=== PATIENT | male | born 1945 | race Caucasian/White ===

== ENCOUNTER 2022-04-26 11:36 | Outpatient (CLI) | payer BC, SELFPAY ==
[2022-04-26 13:10] LABS: Albumin* 4.6 g/dL (3.3-5.0)
[2022-04-26 13:11] LABS: Chloride* 91 mmol/L (96-114); Potassium* 4.5 mmol/L (3.6-5.1); Sodium* 132 mmol/L (135-149)
[2022-04-26 13:13] LABS: Aspartate Amino Transferase* 70 U/L (12-35); Basophils Absolute Auto 0.06 K/uL (0.00-0.30); Basophils Percent Auto 0.9 % (0.0-3.0); Bilirubin Total* 1.2 mg/dL (0.1-1.5); Carbon Dioxide* 27 mmol/L (20-32); Creatinine* 0.8 mg/dL (0.5-1.5); Eosinophils Absolute Auto 0.04 K/uL (0.00-0.50); Eosinophils Percent Auto 0.6 % (0.0-7.0); Estimated Glomerular Filt Rate 92 ml/min; Hematocrit 46.8 % (37.0-53.0); Hemoglobin* 15.5 gm/dL (13.5-17.5); Immature Granulocytes Abs Auto 0.01 K/uL (0.00-0.30); Lymphocytes Absolute Auto 1.52 K/uL (0.90-2.90); Mean Corpuscular HGB Conc 33 gm/dL (32-36); Mean Corpuscular Hemoglobin 31 pg (26-34); Mean Corpuscular Volume 94 fL (80-100); Neutrophils Absolute Auto 4.44 K/uL (1.7-7.0); Neutrophils Percent Auto 67.3 % (42.0-72.0); Platelet Count* 211 K/uL (140-440); RDW Coefficient of Variation % 15.5 % (11.5-15.5); Red Blood Count 4.97 m/uL (4.30-5.90); Slide Review Reflex No; Total Protein* 7.5 g/dL (6.0-8.3)
[2022-04-26 13:14] LABS: Alanine Aminotransferase* 42 U/L (4-50); Alkaline Phosphatase* 69 U/L (40-150); Blood Urea Nitrogen* 9 mg/dL (7-30); Calcium* 9.7 mg/dL (8.4-10.6); Glucose* 140 mg/dL (60-115)
[2022-04-26 13:45] LABS: PSA Diagnostic* 6.67 ng/mL (0.10-4.00)
== END 2022-04-26 11:37 | disposition home or self-care (01) ==
PROVIDERS: PCP Family Medicine; Visit Provider Family Medicine
DX: F10.10 Alcohol abuse, uncomplicated (principal); R97.20 Elevated prostate specific antigen [PSA]; E78.5 Hyperlipidemia, unspecified; I10 Essential (primary) hypertension; Z12.5 Encounter for screening for malignant neoplasm of prostate
CPT/HCPCS: 80053; 84153; 85025

== ENCOUNTER 2022-06-06 09:16 | Outpatient (CLI) | payer BC, SELFPAY ==
--- NOTE | 2022-06-06 10:00 | CRLHL7_ITS ---
For Patients: As a result of the Century Cures Act, medical imaging exams and procedure reports are released immediately into your electronic medical record. You may view this report before your referring provider. If you have questions, please contact your health care provider. INDICATION: FALL. PAIN COMPARISON: none TECHNIQUE: A CT volumetric acquisition was performed of the brain without IV contrast. Please note that all CT scans at this facility use dose modulation, iterative reconstruction, and/or weight-based dosing when appropriate to reduce radiation dose to as low as reasonably achievable. FINDINGS: Mild bilateral sinus disease is present. Generalized atrophy noted. Chronic white matter changes. No hemorrhage or hydrocephalus. No extra-axial fluid collection or mass. No midline shift. IMPRESSION: Chronic senescent changes. No intracranial hemorrhage. Please note that all CT scans at this facility use dose modulation, iterative reconstruction, and/or weight-based dosing when appropriate to reduce radiation dose to as low as reasonably achievable. Dictated by Kurtis Kim MD @ 06/06/2022 9:58:08 AM (Electronically Signed)
--- NOTE | 2022-06-06 10:30 | CRLHL7_ITS ---
For Patients: As a result of the Century Cures Act, medical imaging exams and procedure reports are released immediately into your electronic medical record. You may view this report before your referring provider. If you have questions, please contact your health care provider. Indication: Fall, pain Technique: Routine noncontrast CT lumbar spine Please note that all CT scans at this facility use dose modulation, iterative reconstruction, and/or weight-based dosing when appropriate to reduce radiation dose to as low as reasonably achievable. Comparison: None Findings: There is subtle mild compression of the L1 superior endplate. Remaining vertebral bodies are intact. There is no pars defect. Multilevel discogenic spurring throughout the lumbar spine. Degenerative facet arthropathy lower lumbar spine with grade 1 degenerative spondylolisthesis of L4 on L5 and slight degenerative retrolisthesis of L5 on S1. Vacuum disc phenomenon at L5-S1. Vascular calcifications. Diffuse disc bulge L4-5 and L3-4. No paraspinal soft tissue mass. No adenopathy. Moderately severe canal stenosis L4-5. Impression: Subtle mild compression fracture deformity superior endplate L1. Severe facet degeneration at L4-5 with grade 1 degenerative spondylolisthesis of L4 on L5. Moderately severe canal stenosis is present at this level due to the facet degeneration and a diffuse disc bulge. Please note that all CT scans at this facility use dose modulation, iterative reconstruction, and/or weight-based dosing when appropriate to reduce radiation dose to as low as reasonably achievable. Dictated by Kurtis Kim MD @ 06/06/2022 10:06:15 AM (Electronically Signed)
== END 2022-06-06 09:17 | disposition home or self-care (01) ==
LOC: CT 09:20
PROVIDERS: PCP Family Medicine; Visit Provider Family Medicine
DX: R29.6 Repeated falls (principal); S32.019A Unspecified fracture of first lumbar vertebra, initial encounter for closed fracture; M43.16 Spondylolisthesis, lumbar region; M48.061 Spinal stenosis, lumbar region without neurogenic claudication
CPT/HCPCS: 70450; 72131

== ENCOUNTER 2022-11-07 09:51 | Outpatient (CLI) | payer BC, SELFPAY | END 2022-11-07 09:52 | disposition home or self-care (01) | PROVIDERS: PCP Family Medicine; Visit Provider Family Medicine | DX: I10 Essential (primary) hypertension (principal); E78.5 Hyperlipidemia, unspecified; R63.4 Abnormal weight loss; R97.20 Elevated prostate specific antigen [PSA] | CPT/HCPCS: 80053; 84153; 84443; 85025 ==

== ENCOUNTER 2023-07-24 10:55 | Outpatient (CLI) | payer BC, SELFPAY | END 2023-07-24 10:56 | disposition home or self-care (01) | LOC: NFLDREF 07-26 08:15 | PROVIDERS: PCP Family Medicine; Referring Provider Family Medicine; Visit Provider Physician Assistant | DX: N48.89 Other specified disorders of penis (principal); N48.1 Balanitis | CPT/HCPCS: 87086 ==